=== PATIENT | male | born 1990 | race African-American/Black ===

== ENCOUNTER 2021-11-03 09:37 | Outpatient (CLI) | payer OTHER ==
--- NOTE | 2021-11-08 21:36 | Nuclear Medicine Report ---
PROCEDURE: Thyroid Imaging and Uptake INDICATIONS: THYROTOXICOSIS RADIOPHARMACEUTICAL: 397 Ci I-123 sodium iodide by mouth. TECHNIQUE: I-123 sodium iodide was administered orally. Anterior neck images were obtained, and iodine uptake b y the thyroid gland calculated using mechatronics engineer's software. COMPARISON: None available. FINDINGS: Morphology: The thyroid gland has normal morphology and uniform activity. No cold' or hot' thyroi d nodules are identified. Uptake: 6 hour thyroid uptake is 58%%; normal ranges are from 6-18%. 24 hour thyroid uptake is 66%% ; normal ranges are from 10-30%. IMPRESSION: Significantly increased 6 and 24 hour uptake. Reviewed by: Ludivina Pedro MD on 11/08/2021 9:35 PM PST Approved by: Ludivina Pedro MD on 11/08/2021 9:35 PM PST Station ID: [id number]
== END 2021-11-03 09:38 | disposition home or self-care (01) ==
LOC: DI 09:37
PROVIDERS: ATTEND Student in an Organized Health Care Education/Training Program
DX: E05.90 Thyrotoxicosis, unspecified without thyrotoxic crisis or storm (principal); R94.6 Abnormal results of thyroid function studies
CPT/HCPCS: 78014